=== PATIENT | female | born 1990 | race Caucasian/White ===

== ENCOUNTER 2020-12-30 22:06 | Emergency (ER) | payer MEDICAID ==
[~2020-12-30] VITALS: Ht 172.7 cm; Wt 77.3 kg
[2020-12-30 23:59] VITALS: BP 130/81
== END 2020-12-30 23:59 | disposition home or self-care (01) ==
LOC: ED 22:06
DX: S93.402A Sprain of unspecified ligament of left ankle, initial encounter (principal); Z87.891 Personal history of nicotine dependence; W10.8XXA Fall (on) (from) other stairs and steps, initial encounter; Y92.009 Unspecified place in unspecified non-institutional (private) residence as the place of occurrence of the external cause
CPT/HCPCS: J1885; L4386

== ENCOUNTER 2021-02-02 06:35 | Emergency (ER) | payer MEDICAID ==
[2021-02-02 07:27] LABS: BASO # 0.07 K/mm3 (0.02-0.10); EOS # 0.45 K/mm3 (0.04-0.40); EOS % 4.4 % (1.0-5.0); HEMATOCRIT 42.7 % (37.0-47.0); LYMPH# 3.21 K/mm3 (1.50-4.00); MEAN CELL VOLUME 86 fl (78-100); MEAN CORPUSCULAR HEMOGLOBIN 28 pg (27-31); MEAN CORPUSCULAR HGB CONC 33 g/dL (33-37); MEAN PLATELET VOLUME 9.7 fl (7.4-10.4); MONO # 0.71 K/mm3 (0.20-0.80); NEU # 5.88 K/mm3 (1.40-6.50); PLATELET COUNT 258 K/mm3 (130-400); RED BLOOD COUNT 4.99 M/mm3 (4.10-5.30); RED CELL DISTRIBUTION WIDTH 13.3 % (11.5-14.5); WHITE BLOOD COUNT 10.3 K/mm3 (4.8-10.8)
[2021-02-02 07:28] LABS: ALBUMIN 4.5 g/dL (3.5-5.0)
[2021-02-02 07:30] LABS: CALCIUM 9.4 mg/dL (8.3-10.5)
[2021-02-02 07:31] LABS: TOTAL PROTEIN 7.7 g/dL (6.4-8.3)
[2021-02-02 07:33] LABS: TOTAL BILIRUBIN 0.3 mg/dL (0.2-1.2)
[2021-02-02 07:46] LABS: PH-URINE 5.5 (5.0 - 8.0); URINE APPEARANCE CLEAR; URINE BILIRUBIN NEGATIVE (NEGATIVE); URINE BLOOD TRACE (NEGATIVE); URINE COLOR YELLOW; URINE GLUCOSE NEGATIVE (NEGATIVE); URINE KETONE NEGATIVE (NEGATIVE); URINE LEUKOCYTE ESTERASE NEGATIVE (NEGATIVE); URINE MUCUS PRESENT (NOT PRESENT); URINE NITRATE NEGATIVE (NEGATIVE); URINE PROTEIN(semi-quant) TRACE (NEGATIVE); URINE UROBILINOGEN NORMAL (NORMAL)
[2021-02-02] MEDS ORDERED: METRONIDAZOLE500 M1 PO (08:43)
[2021-02-02 09:05] VITALS: BP 136/68
== END 2021-02-02 09:17 | disposition home or self-care (01) ==
LOC: ED 06:35
PROVIDERS: Nurse Practitioner Family
DX: N20.2 Calculus of kidney with calculus of ureter (principal); N76.0 Acute vaginitis; Z88.0 Allergy status to penicillin
CPT/HCPCS: J1885; J2405; J3010; J7030